=== PATIENT | female | born 1980 | race Two or more races ===

== ENCOUNTER 2021-02-07 11:55 | Emergency (ER) | payer OTHER ==
[~2021-02-07] VITALS: Ht 165.1 cm; Wt 98.1 kg
[2021-02-07] MEDS ORDERED: MAALOX/HYOSCYAMINE/LIDOCAINE 45 ML BTL PO ONE (12:30)
[2021-02-07] MEDS ORDERED: FAMOTIDINE 20 MG/2 ML IVPush ONE (12:30)
[2021-02-07] MEDS ORDERED: SODIUM CHLORIDE 0.9% 1,000ML IVBOLUS ONE (12:30)
[2021-02-07] MEDS ORDERED: DIPHENHYDRAMINE 50 MG/ML, 1ML IVPush ONE (12:30)
[2021-02-07] MEDS ORDERED: ONDANSETRON 2MG/ML, 2ML IVPush ONE (12:30)
[2021-02-07] MEDS ORDERED: PLEASE ENTER ALLERGIES MC SCH (12:30)
[2021-02-07] MEDS ORDERED: METOCLOPRAMIDE 5 MG/ML, 2ML IVPush ONE (12:30)
[2021-02-07 12:48] LABS: BASOPHILS % (AUTO) 1 % (0-1); EOSINOPHILS % (AUTO) 2 % (1-7); LYMPHOCYTES % (AUTO) 31 % (22-44); MEAN CORPUSCULAR HEMOGLOBIN 26.7 pg (27.0-34.8); MEAN CORPUSCULAR HGB CONC 33.4 g/dL (32.4-35.8); MEAN PLATELET VOLUME 8.7 fL (7.4-10.4); MONOCYTES % (AUTO) 5 % (2-9); NEUTROPHILS % (AUTO) 62 % (42-75); PLATELET COUNT 302 x10^3/uL (130-400); RED BLOOD COUNT 5.16 x10^6/uL (3.82-5.3); RED CELL DISTRIBUTION WIDTH 14.3 % (9.6-15.2)
[2021-02-07 12:53] LABS: MICROSCOPIC NOT IND
[2021-02-07] MEDS ORDERED: METOCLOPRAMIDE 5 MG/ML, 2ML ONE (12:55)
[2021-02-07] MEDS ORDERED: FAMOTIDINE 20 MG/2 ML ONE (12:55)
[2021-02-07 12:56] LABS: ALANINE AMINOTRANSFERASE 22 U/L (12-78); ALBUMIN 3.7 g/dL (3.4-5.0); ANION GAP 6 mmol/L (5-15); CALCIUM 8.9 mg/dL (8.5-10.1); CHLORIDE 110 mmol/L (98-107); CREATININE 0.65 mg/dL (0.55-1.02)
[2021-02-07 12:59] LABS: ALKALINE PHOSPHATASE 96 U/L (45-117); BILIRUBIN,TOTAL 0.3 mg/dL (0.2-1.0)
[2021-02-07] MEDS ORDERED: DIPHENHYDRAMINE 50 MG/ML, 1ML ONE (13:08)
[2021-02-07] MEDS ORDERED: MAALOX/HYOSCYAMINE/LIDOCAINE 45 ML BTL ONE (13:08)
--- NOTE | 2021-02-07 13:19 | NUR ---
PT TRANSPORTED TO CT.
--- NOTE | 2021-02-07 14:05 | NUR ---
Pt up to bathroom with steady gait. Pt reports GI cocktail relieved pain.
--- NOTE | 2021-02-07 14:17 | NUR ---
TONO Harrison back to bedside to update pt on POC. Translation services in use.
[2021-02-07 14:35] VITALS: BP 140/82
== END 2021-02-07 14:37 | disposition home or self-care (01) ==
LOC: ED 12:46
DX: K29.50 Unspecified chronic gastritis without bleeding (principal); K21.9 Gastro-esophageal reflux disease without esophagitis; R51.9 Headache, unspecified
CPT/HCPCS: 36415; 70450; 80053; 81003; 83690; 84703; 85025; 93005; 96361; 96374; 96375; 99285; J1200; J2765; J7030

== ENCOUNTER 2021-02-08 09:08 | Emergency (ER) | payer OTHER ==
[~2021-02-08] VITALS: Ht 170.2 cm; Wt 97.4 kg
--- NOTE | 2021-02-08 09:29 | NUR ---
pt presents to ed with c/o high bp, headache, nausea, and feelings of refulux after dinner last night. pt seen yesterday for same cc. pt denies vomitting/diarrhea.
--- NOTE | 2021-02-08 10:15 | NUR ---
angelo Abrams at bedside for eval
[2021-02-08] MEDS ORDERED: METOCLOPRAMIDE 10MG TABLET ONE (10:42)
[2021-02-08] MEDS ORDERED: KETOROLAC 60 MG/2 ML ONE (10:42)
--- NOTE | 2021-02-08 10:50 | NUR ---
pt medicated per order, tolerated well. lab and xr at eside
[2021-02-08] MEDS ORDERED: KETOROLAC 30 MG/1 ML IM ONE (11:00)
[2021-02-08] MEDS ORDERED: METOCLOPRAMIDE 10MG TABLET PO ONE (11:00)
--- NOTE | 2021-02-08 11:15 | NUR ---
pt a&o, resps even and unlabored, vss, all monitors attached, nsr, nadn. awaiting lab results and dispo.
[2021-02-08 11:17] LABS: TROPONIN I < 0.015 ng/mL (0.000-0.045)
[2021-02-08 12:36] VITALS: BP 123/76
--- NOTE | 2021-02-08 12:36 | NUR ---
pt sitting up in bed, pt a&o, resps even and unlabored, vss, all monitors attached, nsr, nadn. awaiting lab results and dispo.
--- NOTE | 2021-02-08 13:11 | NUR ---
angelo Abrams at bedside to discuss poc
[2021-02-08] MEDS ORDERED: LORazepam 1MG TABLET ONE (13:24)
--- NOTE | 2021-02-08 13:27 | NUR ---
pt medicated per order, tolerated well, nadn.
[2021-02-08] MEDS ORDERED: LORazepam 1MG TABLET PO ONE (13:30)
--- NOTE | 2021-02-08 13:52 | NUR ---
pt eductaed on dc, verbalized understanding, ambulatory to dc with steady gait.
== END 2021-02-08 13:54 | disposition home or self-care (01) ==
LOC: ED 09:52
DX: R07.89 Other chest pain (principal); R00.2 Palpitations; F41.1 Generalized anxiety disorder; I10 Essential (primary) hypertension; G43.909 Migraine, unspecified, not intractable, without status migrainosus; K21.9 Gastro-esophageal reflux disease without esophagitis; E03.9 Hypothyroidism, unspecified
CPT/HCPCS: 36415; 71045; 84443; 84484; 93005; 96372; 99285; J1885; Q0181